=== PATIENT | male | born 1955 | race Two or more races ===

== ENCOUNTER 2017-11-07 09:04 | Emergency (ER) | payer MEDICARE, OTHER ==
[2017-11-07 09:22] VITALS: BP 149/74
[2017-11-07 10:02] LABS: CHLORIDE,CL 97 mmol/L (101-111); SODIUM,NA 133 mmol/L (135-145)
[2017-11-07] MEDS ORDERED: Ondansetron 4 MG/2 ML SDV IV ONE (10:18)
[2017-11-07] MEDS ORDERED: Sodium Chloride 0.9% 1,000 ML IV ONE (10:18)
[2017-11-07] MEDS ORDERED: Iopamidol 612 MG/ML 75 ML Bottle IVPUSH ONE (10:19)
--- NOTE | 2017-11-07 10:26 | EDM.PDOC ---
ED HPI GENERAL MEDICAL PROBLEM - General Chief Complaint: Abdominal Pain Stated Complaint: ABDM PAIN X4 DAYS. IN BY PV Time Seen by Provider: 11/07/17 10:00 Source of Information: Reports: Patient History Limitations: Reports: No Limitations - History of Present Illness INITIAL COMMENTS - FREE TEXT/NARRATIVE: This 62 yo male patient reports to the ED from the [facility] due to a 2 -4 day history of mid abdominal pain with nausea. The patient reports that he has not been able to eat or drink fluids due to his abdominal pain. The patient reports that he was started on thyroid medications about 1 week ago. The patient reports that he has not eaten or drank much since Friday (11/04/17). Onset Date: 11/04/17 Duration: Constant, Getting Worse Location: Reports: Abdomen Quality: Reports: Ache, Dull Severity: Severe Improves with: Reports: None Worsens with: Reports: None Associated Symptoms: Reports: No Other Symptoms Upper Mid-Anterior Abdomen Pain Score (Numeric/FACES): 10 - Related Data Allergies Allergy/AdvReac Type Severity Reaction Status Date / Time No Known Allergies Allergy Verified 01/22/17 14:42 Home Meds: Home Meds Aspirin 1 tab PO DAILY 01/22/17 [History] Calcium Citrate/Vitamin D3 [Calcium Citrate - Vit D Tablet] 1 tab PO BID [History] Famotidine [Pepcid] 20 mg PO DAILY 01/22/17 [History] Lisinopril 20 mg PO DAILY 01/22/17 [History] Multivitamin with Minerals [Multivitamins with Minerals] 1 tab PO DAILY [History] Past Medical History Cardiovascular History: Reports: Hypertension Gastrointestinal History: Reports: GERD Musculoskeletal History: Reports: Neck Pain, Chronic, Osteoarthritis, Other ( See Below) Other Musculoskeletal History: degenerative disc disease; osteopenia Neurological History: Reports: Other (See Below) Other Neuro History: hx TBI & hx of generalized brief paralysis Psychiatric History: Reports: Addiction - Past Surgical History HEENT Surgical History: Reports: Eye Surgery GI Surgical History: Reports: Appendectomy, Cholecystectomy Musculoskeletal Surgical History: Reports: Knee Replacement Social & Family History - Family History Family Medical History: Noncontributory - Tobacco Use Smoking Status *Q: Current Every Day Smoker Years of Tobacco use: 40 Packs/Tins Daily: 1 - Caffeine Use Caffeine Use: Reports: Coffee, Soda, Tea - Recreational Drug Use Recreational Drug Use: Yes Recreational Drug Type: Reports: Marijuana/Hashish - Living Situation & Occupation Living situation: Reports: Alone ED ROS GENERAL - Review of Systems Review Of Systems: ROS reveals no pertinent complaints other than HPI. ED EXAM, GI/ABD - Physical Exam Exam: See Below Exam Limited By: No Limitations General Appearance: Alert, WD/WN, Moderate Distress Eyes: Bilateral: Normal Appearance, EOMI Ears: Normal External Exam, Normal Canal, Hearing Grossly Normal, Normal TMs Nose: Normal Inspection, Normal Mucosa, No Blood Throat/Mouth: Normal Inspection, Normal Lips, Normal Teeth, Normal Gums, Normal Oropharynx, Normal Voice, No Airway Compromise Head: Atraumatic, Normocephalic Neck: Normal Inspection, Supple, Non-Tender, Full Range of Motion Respiratory/Chest: No Respiratory Distress, Lungs Clear, Normal Breath Sounds, No Accessory Muscle Use, Chest Non-Tender Cardiovascular: Normal Peripheral Pulses, Regular Rate, Rhythm, No Edema, No Gallop, No JVD, No Murmur, No Rub GI/Abdominal Exam: Soft, No Organomegaly, No Distention, No Abnormal Bruit, No Mass, Pelvis Stable, Tender (epigastric area) (Male) Exam: Deferred Rectal (Males) Exam: Deferred Back Exam: Normal Inspection, Full Range of Motion, NT Extremities: Normal Inspection, Normal Range of Motion, Non-Tender, Normal Capillary Refill, No Pedal Edema Neurological: Alert, Oriented, CN II-XII Intact, Normal Cognition, Normal Gait, Normal Reflexes, No Motor/Sensory Deficits Psychiatric: Normal Affect, Normal Mood Skin Exam: Warm, Dry, Intact, Normal Color, No Rash Lymphatic: No Adenopathy Course - Vital Signs Last Recorded V/S: Last Vital Signs Temp 36.6 C 11/07/17 09:21 Pulse 71 11/07/17 09:21 Resp 16 11/07/17 09:21 BP 149/74 H 11/07/17 09:21 Pulse Ox 93 L 11/07/17 09:21 - Orders/Labs/Meds Orders: Active Orders 24 hr Category Date Time Status Abdomen Pelvis w Cont [CT] Urgent Exams 11/07/17 10:19 Ordered DRUG SCREEN URINE BIORAD [URCHEM] Stat Lab 11/07/17 09:22 Ordered UA W/MICROSCOPIC [URIN] Stat Lab 11/07/17 09:22 Ordered Labs: Laboratory Tests 11/07/17 11/07/17 11/07/17 Range/Units 09:34 09:34 09:34 WBC 16.3 H (5.0-10.0) 10^3/uL RBC 5.42 (4.6-6.2) 10^6/uL Hgb 17.2 D (14.0-18.0) g/dL Hct 49.8 (40.0-54.0) % MCV 91.9 (80-100) fL MCH 31.7 (27.0-34.0) pg MCHC 34.5 (33.0-35.0) g/dL Plt Count 291 (150-450) 10^3/uL Neut % (Auto) 84.2 H (42.2-75.2) % Lymph % (Auto) 7.7 L (20.5-50.1) % [place] % (Auto) 7.9 (2-8) % Eos % (Auto) 0.1 L (1.0-3.0) % Baso % (Auto) 0.1 (0.0-1.0) % Sodium (135-145) mmol/L Potassium (3.6-5.0) mmol/L Chloride (101-111) mmol/L Carbon Dioxide (21.0-31.0) mmol/L Anion Gap BUN (7-18) mg/dL Creatinine (0.6-1.3) mg/dL Est Cr Clr Drug Dosing mL/min Estimated GFR (MDRD) BUN/Creatinine Ratio Glucose (74-105) mg/dL Calcium (8.4-10.2) mg/dl Magnesium 2.2 (1.8-2.5) mg/dL Total Bilirubin (0.2-1.0) mg/dL AST (10-42) IU/L ALT (10-60) IU/L Alkaline Phosphatase (42-121) IU/L Ammonia 7 L (11-35) umol/L Total Protein (6.7-8.2) g/dl Albumin (3.2-5.5) g/dl Globulin Albumin/Globulin Ratio Amylase 68 (28-100) U/L Lipase 18 L (22-51) U/L Ethyl Alcohol < 5 mg/dL 05/18/18 Range/Units 09:34 WBC (5.0-10.0) 10^3/uL RBC (4.6-6.2) 10^6/uL Hgb (14.0-18.0) g/dL Hct (40.0-54.0) % MCV (80-100) fL MCH (27.0-34.0) pg MCHC (33.0-35.0) g/dL Plt Count (150-450) 10^3/uL Neut % (Auto) (42.2-75.2) % Lymph % (Auto) (20.5-50.1) % [place] % (Auto) (2-8) % Eos % (Auto) (1.0-3.0) % Baso % (Auto) (0.0-1.0) % Sodium 133 L (135-145) mmol/L Potassium 4.7 (3.6-5.0) mmol/L Chloride 97 L (101-111) mmol/L Carbon Dioxide 28.0 (21.0-31.0) mmol/L Anion Gap 12.7 BUN 18 (7-18) mg/dL Creatinine 0.9 (0.6-1.3) mg/dL Est Cr Clr Drug Dosing 78.15 mL/min Estimated GFR (MDRD) > 60 BUN/Creatinine Ratio 20.00 Glucose 136 H (74-105) mg/dL Calcium 9.3 (8.4-10.2) mg/dl Magnesium (1.8-2.5) mg/dL Total Bilirubin 1.5 H (0.2-1.0) mg/dL AST 100 H (10-42) IU/L ALT 125 H (10-60) IU/L Alkaline Phosphatase 93 (42-121) IU/L Ammonia (11-35) umol/L Total Protein 8.2 (6.7-8.2) g/dl Albumin 4.2 (3.2-5.5) g/dl Globulin 4.0 Albumin/Globulin Ratio 1.05 Amylase (28-100) U/L Lipase (22-51) U/L Ethyl Alcohol mg/dL Meds: Medications Discontinued Medications Generic Name Dose Route Start Last Admin Trade Name Freq PRN Reason Stop Dose Admin Sodium Chloride 1,000 mls @ 999 mls/hr 11/07/17 10:18 11/07/17 10:32 Normal Saline IV 11/07/17 11:18 999 mls/hr .BOLUS ONE Administration Iopamidol 75 ml 11/07/17 10:19 11/07/17 11:00 Isovue-300 (61%) IVPUSH 11/07/17 10:20 75 ml ONETIME ONE Administration Ondansetron HCl 4 mg 11/07/17 10:18 11/07/17 10:32 Zofran IV 11/07/17 10:19 4 mg ONETIME ONE Administration Departure - Departure Time of Disposition: 11:47 Disposition: DC/Tfer to [facility] 02 Condition: Fair Clinical Impression: Hernia of unspecified site, with obstruction, Mechanical obstruction of the intestine - Discharge Information Forms: Interfacility Transfer EMTALA Care Plan Goals: Discussed the examination, history, lab and CT results with Dr. Mcguire ( Surgery with [facility] in [place]). Dr. Mcguire accepted the patient for continued evaluation and further care. The patient will be transported by [facility]. - My Orders Last 24 Hours: My Active Orders 11/07/17 09:22 DRUG SCREEN URINE BIORAD [URCHEM] Stat UA W/MICROSCOPIC [URIN] Stat 11/07/17 10:19 Abdomen Pelvis w Cont [CT] Urgent - Assessment/Plan Last 24 Hours: My Active Orders 11/07/17 09:22 DRUG SCREEN URINE BIORAD [URCHEM] Stat UA W/MICROSCOPIC [URIN] Stat 11/07/17 10:19 Abdomen Pelvis w Cont [CT] Urgent
--- NOTE | 2017-11-07 11:45 | CT ---
CLINICAL HISTORY: 62-year-old 145 pound hypertensive male smoker with severe abdominal pain (previous cholecystectomy). SCAN TECHNIQUE: Volume acquisition of data from an emergency CT scan abdomen and pelvis obtained with out oral contrast but during/after the intravenous administration 75 cc nonionic Isovue while the pat ient was lying supine on the Siemens multislice scanner [facility]. All data archived in the PACS system for storage, reformatting and study. INTERPRETATION: Abnormal. (Mechanical bowel obstruction) 1. *Abnormal dilatation small bowel loops, ascending right and transverse colon to the LUQ. NOTE: Abnormal diaphragmatic defect; herniated, incarcerated splenic flexure of the large bowel; and proximal obstruction, i.e., mechanical large/small bowel obstruction with abrupt transition LUQ. 2. No abdominal or pelvic mass lesion and no signs of mesenteric or retroperitoneal lymphadenopathy. Sigmoid diverticulosis. 3. Large hiatus hernia incarcerated in the lower middle mediastinum. 4. Surgically absent gallbladder (metal clips). Densely calcified, contracted (infarcted) spleen LUQ. 5. Liver, pancreas, right adrenal gland and right kidney unremarkable. Large 19 mm fatty left adrenal lesion (angiomyolipoma? 6. Diffuse scarring (chronic pyelonephritis?) cortex mid and lower poles left kidney. 7. Extensive atheromatous plaque/signs of intramural thrombus this normal caliber abdominal aorta. No aneurysm or dissection. Lung bases are clear except for a diaphragmatic hernia, on the left. Normal heart. Trace ascites right paracolic gutter. 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 Cholecystectomy. Sigmoid diverticulosis. Large hiatus hernia. Abnormal spleen a nd chronic inflammation left kidney. CRITICAL EXAM: Emergency department provider notified 11:30 AM Friday, 07 Nov 2017.
== END 2017-11-07 13:00 ==
LOC: DL.ED 09:04
DX: K46.0 Unspecified abdominal hernia with obstruction, without gangrene (principal); I10 Essential (primary) hypertension; F17.210 Nicotine dependence, cigarettes, uncomplicated; Z79.82 Long term (current) use of aspirin; Z79.899 Other long term (current) drug therapy
CPT/HCPCS: 36415; 74177; 80053; 80305; 81001; 82140; 82150; 83690; 83735; 85025; 96361; 96374; 99285; G0480; J2405; J7030; Q9967; 99284